=== PATIENT | male | born 1960 | race Caucasian/White ===

== ENCOUNTER → 2024-03-19 11:54 | Outpatient (REF) | payer OTHER, SELFPAY | LOC: DHCBC/DCA 11:54 | PROVIDERS: ATTENDING PHYSICIAN Nurse Practitioner; FAMILY PHYSICIAN Internal Medicine | DX: I25.118 Atherosclerotic heart disease of native coronary artery with other forms of angina pectoris (principal); I10 Essential (primary) hypertension; R06.09 Other forms of dyspnea; E78.00 Pure hypercholesterolemia, unspecified | CPT/HCPCS: 78452; 93017; A9500; J2785 ==

== ENCOUNTER → 2024-05-07 15:12 | Outpatient (REF) | payer OTHER, SELFPAY | LOC: HWRCS 15:12 | PROVIDERS: ATTENDING PHYSICIAN Internal Medicine Cardiovascular Disease; FAMILY PHYSICIAN Internal Medicine | DX: I25.118 Atherosclerotic heart disease of native coronary artery with other forms of angina pectoris (principal); R06.09 Other forms of dyspnea | CPT/HCPCS: 93306 ==

== ENCOUNTER → 2024-09-28 11:30 | Outpatient (REF) | payer OTHER, SELFPAY | LOC: RAD 11:30 | PROVIDERS: ATTENDING PHYSICIAN Nurse Practitioner | DX: M25.552 Pain in left hip (principal) | CPT/HCPCS: 73502; 73564 ==

== ENCOUNTER 2025-04-08 14:37 | Outpatient (RCR) | payer OTHER, SELFPAY ==
[2025-03-25 14:04] VITALS: BP 153/90
[2025-03-25] MEDS: VENOFER 110 MG IV (14:19)
[2025-03-25 16:04] VITALS: BP 138/87
[2025-03-28 14:41] VITALS: BP 140/85
[2025-03-28] MEDS: VENOFER 110 MG IV (14:55)
[2025-03-28 16:03] VITALS: BP 144/83
[2025-03-30 09:45] VITALS: BP 150/85
[2025-03-30] MEDS: VENOFER 110 MG IV (09:59)
[2025-03-30 11:16] VITALS: BP 133/78
[2025-04-08] MEDS: VENOFER 110 MG IV (14:58)
[2025-04-08 15:04] VITALS: BP 127/90
[2025-04-08 16:08] VITALS: BP 131/83
== END 2025-04-11 08:55 | disposition home or self-care (01) ==
LOC: OID 14:37
PROVIDERS: ATTENDING PHYSICIAN Nurse Practitioner
DX: D50.9 Iron deficiency anemia, unspecified (principal); R06.02 Shortness of breath
CPT/HCPCS: 96365; J1756

== ENCOUNTER 2025-04-12 14:42 | Outpatient (RCR) | payer OTHER, SELFPAY ==
[2025-04-12] MEDS: VENOFER 110 MG IV (15:02)
[2025-04-12 15:23] VITALS: BP 131/82
== END 2025-04-13 08:14 | disposition home or self-care (01) ==
LOC: OID 14:42
PROVIDERS: ATTENDING PHYSICIAN Nurse Practitioner
DX: D50.9 Iron deficiency anemia, unspecified (principal); R06.02 Shortness of breath
CPT/HCPCS: 96365; J1756

== ENCOUNTER → 2025-09-10 11:33 | Outpatient (REF) | payer OTHER, SELFPAY | LOC: PAVMRI 11:33 | PROVIDERS: ATTENDING PHYSICIAN Nurse Practitioner; REFERRING PHYSICIAN Internal Medicine Rheumatology | DX: M70.52 Other bursitis of knee, left knee (principal) | CPT/HCPCS: 73721 ==